=== PATIENT | male | born 1955 | race Caucasian/White ===

== ENCOUNTER 2016-10-05 11:44 | Emergency (ER) | payer OTHER ==
[~2016-10-05] VITALS: Wt 75.0 kg
[~2016-10-05 11:44] MED LIST: BACTDS PO; CIPR500T4 PO; HYDR-902 PO; LUBI24CA7 PO; MTF1000T PO
[2016-10-05] MEDS ORDERED: ALBUTEROL 0.5% (NEB) 2.5 MG/0.5 ML AMP NEB STA ×2 (16:17→18:03)
[2016-10-05] MEDS ORDERED: IPRATROPIUM (NEB) 0.5 MG/2.5 ML AMP NEB STA (16:17)
[2016-10-05] MEDS ORDERED: METHYLPREDNISOLONE 125 MG INJ IV ONE (16:30)
[2016-10-05] MEDS ORDERED: METF1000 PO (16:36)
--- NOTE | 2016-10-05 16:39 | RADRPT ---
PROCEDURE: XR Chest. CLINICAL INDICATION: Chest pain TECHNIQUE: Chest PA and lateral. COMPARISON: Chest CT 11/16/2015 FINDINGS: The mediastinal structures are unremarkable. The heart is normal in size and configuration. The pu lmonary vascularity is normal. The lung milian are unremarkable. No consolidation is identified. The pleural spaces are unremarkable. The axial skeleton is unremarkable. IMPRESSION: No active intrathoracic disease. RPTAT: HGDB .Chester Mills MD, MD Date Time Electronically viewed and signed by .Chester Mills MD, on 10/05/2016 16:39 .B/
[2016-10-05 17:08] LABS: BASOPHILS % 0.2 % (0.0-2.0); EOSINOPHILS # 0.5 10^3/ul (0.0-0.5); EOSINOPHILS % 5.2 % (0.0-7.0); HEMATOCRIT 45.5 % (42.0-52.0); HEMOGLOBIN 15.6 g/dl (14.0-18.0); LYMPHOCYTES # 2.4 10^3/ul (0.8-2.9); LYMPHOCYTES % 24.9 % (15.0-51.0); MEAN CORPUSCULAR HGB CONC 34.2 g/dl (32.0-37.0); MEAN CORPUSCULAR VOLUME 90.5 fl (82.0-101.0); MEAN PLATELET VOLUME 8.3 fl (7.4-10.4); MONOCYTES % 10.6 % (0.0-11.0); NEUTROPHIL # 5.7 10^3/ul (1.6-7.5); NEUTROPHILS % 59.1 % (39.0-77.0); PLATELET COUNT 231 10^3/UL (140-440); RED BLOOD COUNT 5.02 10^6/ul (4.70-6.10); RED CELL DISTRIBUTION WIDTH 15.5 % (11.5-14.5); UNCORRECTED WBC 9.6 10^3/ul (4.8-10.8); WHITE BLOOD COUNT 9.6 10^3/ul (4.8-10.8)
[2016-10-05 17:20] LABS: CONDITION 1; LH ANALYZER COMMENTS 1
[2016-10-05 17:21] LABS: POTASSIUM 3.8 mmol/L (3.5-5.1)
[2016-10-05 17:24] LABS: CREATININE 0.88 mg/dl (0.61-1.24)
[2016-10-05 17:25] LABS: CALCIUM 8.8 mg/dl (8.4-10.2)
--- NOTE | 2016-10-05 18:06 | ERD ---
ER Documentation Chief Complaint Date/Time DATE: 10/05/16 TIME: 18:04 Chief Complaint SOB WITH PRODUCTIVE COUGH HPI This is a 61-year-old male who presents to the emergency room for evaluation of shortness of breath and a cough. The patient states that his cough is productive of white phlegm. He does state that he had these similar symptoms last year in October and was diagnosed with pneumonia. He did receive a Pneumovax this year and denies having any fevers at home however he was concerned based off of his symptoms and came to the emergency room for evaluation. She denies any chest pain or palpitations associated with this ROS All systems reviewed and are negative except as per history of present illness. Medications Home Meds Reported Medications Metformin Hcl* (Metformin Hcl*) 1,000 Mg Tablet, 1000 MG PO WITH BREAKFAST DINNE , #60 TAB 10/05/16 Discontinued Reported Medications Lubiprostone* (Amitiza*) 24 Mcg Capsule, 24 MCG PO TID, #60 CAP 07/22/16 Ciprofloxacin Hcl* (Ciprofloxacin Hcl*) 500 Mg Tablet, 500 MG PO BID, #14 TAB PER PT STARTED 07-18-16 07/22/16 Metformin* (Glucophage*) 1,000 Mg Tablet, 1000 MG PO BID, #60 TAB 07/22/16 Discontinued Scripts Hydrocodone/Acetaminophen ([place] 10-325 Tablet) 1 Each Tablet, 1 TAB PO Q6H Y for PAIN, #15 TAB Prov:MAURICIO SCHWAB MD 07/22/16 Sulfamethoxazole-Trimethoprim* (Bactrim* DS) 800-160 Mg Tab, 1 TAB PO BID for 10 Days, TAB Prov:MAURICIO SCHWAB MD 07/22/16 Allergies Allergies: Coded Allergies: No Known Allergy (Unverified , 10/05/16) PMhx/Soc History of Surgery: Yes (left knee ) Anesthesia Reaction: No Hx Neurological Disorder: No Hx Respiratory Disorders: No Hx Cardiac Disorders: No Hx Psychiatric Problems: No Hx Miscellaneous Medical Probl: Yes (DIABETES) Hx Alcohol Use: No Hx Substance Use: No Hx Tobacco Use: Yes Smoking Status: Current every day smoker Physical Exam Vitals Vital Signs Date Time Temp Pulse Resp B/P Pulse Ox O2 Delivery O2 Flow Rate FiO2 10/05/16 17:03 88 20 96 21 10/05/16 16:51 74 18 114/81 99 Room Air 10/05/16 11:47 97.9 89 18 114/76 95 Physical Exam INITIAL VITAL SIGNS: Reviewed by me GENERAL: The patient is well developed and appropriate for usual state of health in no apparent distress HEENT: Pupils equal, round, and reactive to light. EOMI. There is no scleral icterus. NECK: C-spine is soft and supple, there is no meningismus. There is no cervical lymphadenopathy. LUNGS: Diffuse wheezing auscultated in the upper and lower lobes HEART: Regular rate and rhythm, no murmurs, clicks, rubs or gallops. ABDOMEN: Soft, non-tender, non-distended. There are bowel sounds in all four quadrants. No rebound or guarding. EXTREMITIES: There is no peripheral cyanosis or edema. No focal swelling or erythema. NEUROLOGICAL: The patient moves all four extremities with 5/5 strength. Cranial nerves II - XII are intact. Normal gait. Alert and oriented SKIN: There is no apparent rash or petechiae. HEME/LYMPHATIC: There is no evidence of excessive bruising or lymphedema. PSYCHIATRIC: The patient does not appear anxious or depressed. Result Diagram: 10/05/16 1645 10/05/16 1645 Results 24 hrs Laboratory Tests Test 10/05/16 16:45 Anion Gap 15 Basophils # 0.010^3/ul Basophils % 0.2% Blood Morphology Comment Blood Urea Nitrogen 15mg/dl Calcium Level 8.8mg/dl Carbon Dioxide Level 25mmol/L Chloride Level 109mmol/L Creatinine 0.88mg/dl Eosinophils # 0.510^3/ul Eosinophils % 5.2% Glucose Level 174mg/dl Hematocrit 45.5% Hemoglobin 15.6g/dl Lactic Acid Level 1.5mmol/L Lymphocytes # 2.410^3/ul Lymphocytes % 24.9% Mean Corpuscular Hemoglobin 31.0pg Mean Corpuscular Hemoglobin Concent 34.2g/dl Mean Corpuscular Volume 90.5fl Mean Platelet Volume 8.3fl Monocytes # 1.010^3/ul Monocytes % 10.6% Neutrophils # 5.710^3/ul Neutrophils % 59.1% Nucleated Red Blood Cells # 0.010^3/ul Nucleated Red Blood Cells % 0.0/100WBC Platelet Count 08350^3/UL Potassium Level 3.8mmol/L Red Blood Count 5.0210^6/ul Red Cell Distribution Width 15.5% Sodium Level 145mmol/L White Blood Count 9.610^3/ul Current Medications Medications (Trade) Dose Ordered Sig/Radha Route PRN Reason Start Time Stop Time Status Last Admin Dose Admin Methylprednisolone Sodium Succinate (Solu-Medrol) 125 mg ONCE ONCE IV 10/05/16 16:30 10/05/16 16:31 DC 10/05/16 16:50 Albuterol (Proventil 0.5% (Neb)) 10 mg ONCE STAT NEB 10/05/16 16:17 10/05/16 16:18 DC 10/05/16 17:03 Ipratropium [place] (Atrovent 0.02% (Neb)) 1.5 mg ONCE STAT NEB 10/05/16 16:17 10/05/16 16:18 DC 10/05/16 17:03 Procedures/MDM Chest X-ray 1V Interpreted by me: Soft Tissue: No acute abnormalities Bones: No acute abnormalities Mediastinum/Cardiac Silhouette/Lungs: [No acute abnormalities] This 61-year-old male presents to the emergency room for evaluation of shortness of breath. When I evaluated him he did have diffuse wheezing auscultated in all lung milian. He was not hypoxic, not tachypneic, and was only in mild respiratory distress. She was given a breathing treatment with albuterol, and Atrovent. He was also given Solu-Medrol 125 mg IV. X-ray was obtained which does not show any pneumonia. The patient was reevaluated after his first breathing treatment and still had minor wheezing. He was given a second breathing treatment. His oxygen saturations 100% on 2 L, he is in no acute distress at this time. He will be discharged home with a prescription for ProAir air, and prednisone. The patient is okay with her plan of care and will follow with primary care physician. Smoking Cessation Therapy: Pt. was lectured for greater than 3 minutes on the health risks of continued smoking and the benefits of cessation. Departure Diagnosis: Primary Impression: Acute asthmatic bronchitis Additional Impressions: Shortness of breath Tobacco abuse Tobacco abuse counseling Condition: DYLAN Yee DO Oct 05, 2016 18:06
[2016-10-05] MEDS ORDERED: ALBU8.5H3 INH (18:08)
[2016-10-05] MEDS ORDERED: PRED50TA PO (18:08)
[2016-10-05 19:11] VITALS: BP 125/77; PULSE 88; RESP 17; TEMP 98
== END 2016-10-05 19:17 | disposition home or self-care (01) ==
LOC: E/R 11:44
DX: J45.901 Unspecified asthma with (acute) exacerbation (principal); F17.210 Nicotine dependence, cigarettes, uncomplicated; E11.9 Type 2 diabetes mellitus without complications; Z71.6 Tobacco abuse counseling; Z79.84 Long term (current) use of oral hypoglycemic drugs
CPT/HCPCS: 36415; 71010; 80048; 83605; 85025; 87040; 87400; 94644; 94645; 96374; 99284; J2930

== ENCOUNTER 2017-02-05 12:56 | Emergency (ER) | payer OTHER ==
[~2017-02-05] VITALS: Wt 80.0 kg
[~2017-02-05 12:56] MED LIST changes: +ALBU8.5H3 INH; -BACTDS PO; -CIPR500T4 PO; -HYDR-902 PO; -LUBI24CA7 PO; +METF1000 PO; -MTF1000T PO; +PRED50TA PO
[2017-02-05] MEDS ORDERED: KETOROLAC 60 MG INJ IM STA (16:05)
[2017-02-05 16:12] LABS: ADD UMIC YES; UR BILIRUBIN (Dip) NEGATIVE (NEGATIVE); UR BLOOD (Dip) 1+ (NEGATIVE); UR CLARITY SLIGHTLY CLOUDY (CLEAR); UR COLOR LT. YELLOW (YELLOW); UR GLUCOSE (Dip) NEGATIVE (NEGATIVE); UR KETONES (Dip) NEGATIVE (NEGATIVE); UR LEUKOCYTE ESTERASE (Dip) 1+ (NEGATIVE); UR NITRITE (Dip) POSITIVE (NEGATIVE); UR TOTAL PROTEIN (Dip) TRACE (NEGATIVE); UR UROBILINOGEN (Dip) 0.2 E.U./dL (0.1-1.0)
[2017-02-05 16:30] LABS: URINE RBCS 0-2 /HPF (0)
[2017-02-05 16:31] LABS: UR BACTERIA MANY /HPF (NONE SEEN); UR SQUAMOUS EPITHELIAL CELL RARE /HPF (FEW)
--- NOTE | 2017-02-05 17:20 | RADRPT ---
PROCEDURE: US Scrotum. CLINICAL INDICATION: Bilateral testicular pain. TECHNIQUE: Multiple sonographic images of the scrotal region were obtained utilizing a linear arra y transducer with grayscale and color-flow and a Doppler imaging. The images were reviewed on a high -resolution PACS workstation. COMPARISON: No prior studies are available for comparison. FINDINGS: The right testicle is well visualized and has a normal echotexture. No focal areas of abnormal echog enicity are visualized. The right testicle measures measures 3.3 cm transverse by 3.9 x 2.3 cm. Ther e is normal color-flow. The right epididymis is visualized and unremarkable in appearance. There is normal color-flow. The left testicle is well visualized and has a normal echotexture. No focal areas abnormal echogenic ity are visualized. The left testicle measures measures 2.8 cm transverse by 4.1 x 2.5 cm. There is normal color-flow. The left epididymis is visualized and is unremarkable in appearance. There is nor mal color-flow. The scrotal wall is unremarkable. No swelling or edema is seen. No other incidental abnormality is identified. There is a left hydrocele. There is no evidence of a varicocele. IMPRESSION: 1. There is a small left hydrocele. 2. Otherwise, unremarkable testicular sonogram with normal blood flow to both testicles. RPTAT:AAJJ Physician Mary Date Time Electronically viewed and signed by Physician Mary on 02/05/2017 17:19 MI/
[2017-02-05 17:43] LABS: UR SPECIFIC GRAVITY (Dip) 1.025 (1.003-1.030)
[2017-02-05] MEDS ORDERED: CEFTRIAXONE 250 MG INJ IM ONE (18:00)
[2017-02-05 18:07] VITALS: BP 112/68; PULSE 68; RESP 16
[2017-02-05] MEDS ORDERED: HYDR-906 PO (18:23)
[2017-02-05] MEDS ORDERED: CIPR500T4 PO (18:23)
[2017-02-05] MEDS ORDERED: NAPR-688 PO (18:23)
--- NOTE | 2017-02-05 18:38 | ERD ---
ER Documentation Chief Complaint Date/Time DATE: 02/05/17 TIME: 18:32 Chief Complaint dysuria for the past 2 wks with lower abd burning when urinating. no fever HPI This 61-year-old male presents with pain on urination and mild suprapubic pain for the last 2 weeks. He has had a urinary tract infection before. Primary care doctor is currently doing a workup for his prostate. Recently had a PSA level done and it showed 4.3. He has been told before that he is urinary tract infections because of a large prostate that obstructs outflow of urine. He is currently able to urinate. He has had no fevers or chills. No nausea and vomiting. He does have some occasional left testicular pain. ROS All systems reviewed and are negative except as per history of present illness. Medications Home Meds Active Scripts Ciprofloxacin Hcl* (Ciprofloxacin Hcl*) 500 Mg Tablet, 500 MG PO BID for 10 Days , TAB Prov:GELAANNELISE DO 02/05/17 Naproxen* (Naproxen*) 500 Mg Tablet, 500 MG PO BID Y for PAIN, #10 TAB Prov:GELAANNELISE DO 02/05/17 Hydrocodone/Acetaminophen ([place] 5-325 Tablet) 1 Each Tablet, 1 EACH PO Q6, #20 TAB Prov:GELAANNELISE DO 02/05/17 Prednisone* (Prednisone*) 50 Mg Tablet, 50 MG PO DAILY for 4 Days, TAB Prov:DYLAN JENNINGS DO 10/05/16 Albuterol Sulfate* (Proair HFA*) 8.5 Gm Hfa.aer.ad, 2 PUFF INH Q4, #1 INHALER Prov:DYLAN JENNINGS DO 10/05/16 Reported Medications Metformin Hcl* (Metformin Hcl*) 1,000 Mg Tablet, 1000 MG PO WITH BREAKFAST DINNE , #60 TAB 10/05/16 Allergies Allergies: Coded Allergies: No Known Allergy (Unverified , 10/05/16) PMhx/Soc History of Surgery: Yes (left knee ) Anesthesia Reaction: No Hx Neurological Disorder: No Hx Respiratory Disorders: No Hx Cardiac Disorders: No Hx Psychiatric Problems: No Hx Miscellaneous Medical Probl: Yes (DIABETES) Hx Alcohol Use: No Hx Substance Use: No Hx Tobacco Use: Yes Smoking Status: Never smoker Physical Exam Vitals Vital Signs Date Time Temp Pulse Resp B/P Pulse Ox O2 Delivery O2 Flow Rate FiO2 02/05/17 18:07 68 16 112/68 100 Room Air 02/05/17 13:07 99.9 89 21 111/66 98 Physical Exam Const: [] No distress Head: Atraumatic Eyes: Normal Conjunctiva ENT: Normal External Ears, Nose and Mouth. Abd: Soft, very mild suprapubic tenderness without guarding or rebound., non distended. Normal bowel sounds, bilateral testicles are normal in appearance but patient complains of mild pain on palpation. Normal appearance of the penis. Skin: No petechiae or rashes Back: No midline or flank tenderness Ext: No cyanosis, or edema Neur: Awake and alert and oriented 3, no focal deficit Results 24 hrs Laboratory Tests Test 02/05/17 15:38 Urine Color LT. YELLOW Urine Clarity SLIGHTLY CLOUDY Urine pH 6.0 Urine Specific [place] 1.025 Urine Ketones NEGATIVE Urine Nitrite POSITIVE Urine Bilirubin NEGATIVE Urine Urobilinogen 0.2 E.U./dL Urine Leukocyte Esterase 1+ Urine Microscopic RBC 0-2/HPF Urine Microscopic WBC 25-50/HPF Urine Squamous Epithelial Cells RARE/HPF Urine Bacteria MANY/HPF Urine Hemoglobin 1+ Urine Glucose NEGATIVE% Urine Total Protein TRACE Current Medications Medications (Trade) Dose Ordered Sig/Radha Route PRN Reason Start Time Stop Time Status Last Admin Dose Admin Ketorolac Tromethamine (Toradol) 60 mg ONCE STAT IM 02/05/17 16:05 02/05/17 16:08 DC 02/05/17 16:13 Ceftriaxone Sodium (Rocephin) 250 mg ONCE ONCE IM 02/05/17 18:00 02/05/17 18:01 DC 02/05/17 18:00 Procedures/MDM Complicated urinary tract infection secondary to it being in a 61-year-old male. Also small hydrocele on ultrasound with good testicular blood flow. He was given Toradol injection in the emergency room which to ease his pain significantly. Also gave him a 250 mg Rocephin injection. We will discharge him with ciprofloxacin for 10 days. Instructed him to call his primary care doctor to get a urological referral. Discharging him with naproxen, [place] and Cipro. Urine culture was obtained. Ultrasound interpretation, scrotal contents: Small left hydrocele with good blood flow to testicles Departure Diagnosis: Primary Impression: Hydrocele in adult Additional Impression: Complicated UTI (urinary tract infection) Condition: Stable Patient Instructions: Understanding Urinary Tract Infections (UTIs), Hydrocele , Type Not Specified Additional Instructions: Call your primary care doctor TOMORROW for an appointment during the next 1-2 days to obtain a referral with a UROLOGIST WITHIN THE NEXT WEEK. See the doctor sooner or return here if your condition worsens before your appointment time. ANNELISE REN DO Feb 05, 2017 18:38
== END 2017-02-05 19:09 | disposition home or self-care (01) ==
LOC: FTE 12:56
DX: N43.3 Hydrocele, unspecified (principal); N39.0 Urinary tract infection, site not specified; E11.9 Type 2 diabetes mellitus without complications; Z79.84 Long term (current) use of oral hypoglycemic drugs; Z87.891 Personal history of nicotine dependence
CPT/HCPCS: 76870; 81001; 87086; 96372; 99285; J0696; J1885

== ENCOUNTER 2017-05-04 21:17 | Emergency (ER) | payer OTHER ==
[~2017-05-04] VITALS: Ht 172.7 cm; Wt 83.0 kg
[~2017-05-04 21:17] MED LIST changes: +CIPR500T4 PO; +HYDR-906 PO; +NAPR-688 PO
[2017-05-04 21:26] VITALS: Ht 172.7 cm; Wt 83.0 kg
[2017-05-04] MEDS ORDERED: HYDROCODONE/APAP (5/325) TAB PO ONE (23:30)
--- NOTE | 2017-05-05 00:51 | RADRPT ---
PROCEDURE: XR Hand. CLINICAL INDICATION: Pain in the left thumb base TECHNIQUE: PA, oblique and lateral views of the left hand were obtained. COMPARISON: None available. FINDINGS: Mineralization is within normal limits. No fracture or osseous lesion is identified. Joint spaces are preserved. Soft tissues are unremarkable. No radiopaque foreign body is present. RPTAT:HJJR IMPRESSION: Unremarkable left hand series. Physician Kizzy Date Time Electronically viewed and signed by Mumtaz Alvarez Physician on 05/05/2017 00:50 /
--- NOTE | 2017-05-05 00:51 | RADRPT ---
PROCEDURE: XR Wrist. CLINICAL INDICATION: Left wrist pain TECHNIQUE: PA, lateral and oblique and the scaphoid views of the left wrist were performed. COMPARISON: No prior studies are available for comparison. FINDINGS: No evidence of fracture, dislocation, or subluxation is seen. The bones appear well mineralized. mo derate degenerative narrowing of the radiocarpal joint is present. The remaining articulations are g rossly normal. There is no evidence of joint erosion No soft tissue abnormalities are identified and there is no evidence of radiopaque foreign body. 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 Physician Kizzy Date Time Electronically viewed and signed by Physician Kizzy on 05/05/2017 00:50 /
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
[2017-05-05] MEDS ORDERED: HYDR-906 PO (01:12)
[2017-05-05 01:36] VITALS: BP 112/81; PULSE 77; RESP 16
== END 2017-05-05 01:38 | disposition home or self-care (01) ==
LOC: FTE 21:17
DX: S69.92XA Unspecified injury of left wrist, hand and finger(s), initial encounter (principal); E11.9 Type 2 diabetes mellitus without complications; F17.210 Nicotine dependence, cigarettes, uncomplicated; V49.40XA Driver injured in collision with unspecified motor vehicles in traffic accident, initial encounter; Z79.84 Long term (current) use of oral hypoglycemic drugs

== ENCOUNTER 2018-08-03 08:29 | Emergency (ER) | END 2018-08-03 09:31 | disposition home or self-care (01) ==

== ENCOUNTER → 2018-10-09 | Outpatient (CLI) | payer OTHER ==
[~2018-10-09] MED LIST changes: -ALBU8.5H3 INH; +ALBU8.5H8 INH; +HYDR-4011 PO; -HYDR-906 PO; +IBUP-1542 PO; -METF1000 PO; +METF100010 PO
== END | disposition home or self-care (01) ==
LOC: RAD 13:39
PROVIDERS: ATTEND Internal Medicine
DX: Z01.818 Encounter for other preprocedural examination (principal)
CPT/HCPCS: 71046